=== PATIENT | female | born 1980 | race Caucasian/White ===

== ENCOUNTER 2016-10-06 17:40 | Emergency (ER) | payer OTHER ==
[2016-10-06 17:43] VITALS: TEMP 97.8; BMI 28.7
[2016-10-06] MEDS ORDERED: ACETAMINOPHEN 500 MG TABLET (FP) PO ONE (18:06)
[2016-10-06] MEDS ORDERED: ACETAMINOPHEN 325 MG TABLET (FP) ONE (18:15)
[2016-10-06 18:16] LABS: BASOPHIL 0.2 % (0-2.0); EOSINOPHIL 1.1 % (0-4.5); MCH 29.1 pg (25.7-33.7); MCHC 33.5 g/dl (32.0-36.0); MEAN CELL VOLUME 86.8 fl (80-96); MEAN PLT VOLUME 9.2 fl (7.5-11.1); NEUTROPHILS 61.9 % (42.8-82.8); PLATELET COUNT 100 K/MM3 (134-434); RDW 13.6 % (11.6-15.6); WHITE BLOOD COUNT 7.2 K/mm3 (4.0-10.0)
[2016-10-06 18:17] LABS: URINE APPEARANCE CLEAR; URINE BILIRUBIN NEGATIVE (NEGATIVE); URINE COLOR COLORLESS; URINE GLUCOSE (UA) NEGATIVE (NEGATIVE); URINE KETONE NEGATIVE (NEGATIVE); URINE LEUK ESTERASE NEGATIVE (NEGATIVE); URINE NITRITE NEGATIVE (NEGATIVE); URINE PROTEIN NEGATIVE (NEGATIVE); URINE UROBILINOGEN NEGATIVE E.U./dl (0.2-1.0)
--- NOTE | 2016-10-06 18:35 | PDOC ---
[id number] VAGINAL BLEEDING/9WKS Time Seen by Provider: 10/06/16 17:49 History Source: Patient Exam Limitations: No Limitations - History of Present Illness Travel History: No Initial Comments: 10/06/16 18:33 36-year-old female currently 9 weeks presents with vaginal bleeding since this morning worsening severity now with clots. Patient also complaining of lower abdominal cramping without dizziness, fever, or chills. Patient states is followed by Dr. Stewart but has not had an ultrasound yet for this and decided come to the ER when the bleeding worsened. Timing/Duration: reports: getting worse Quality: reports: moderate, cramping Abdominal Pain Onset Location: reports: suprapubic Pain Radiation: denies: no radiation Activities at Onset: denies: none Aggravating Factors: worse with: None Alleviating Factors: worse with: None Past History - Past Medical History Allergies/Adverse Reactions: Allergies Allergy/AdvReac Type Severity Reaction Status Date / Time No Known Allergies Allergy Verified 10/06/16 17:43 Home Medications: Ambulatory Orders NK [No Known Home Medication] 10/06/16 Other medical history: denies - Reproductive History Is Patient Now?: Yes (9 weeks ) (#): 5 Para: 4 - Psycho/Social/Smoking Cessation Hx Suicidal Ideation: No Smoking History: Never smoked Information on smoking cessation initiated: No Hx Alcohol Use: No Drug/Substance Use Hx: No Substance Use Type: None Patient Lives Alone: No Lives with/in: spouse/SO Review of Systems - Review of Systems Able to Perform ROS?: Yes Constitutional: No: Symptoms Reported HEENTM: No: Symptoms Reported Respiratory: No: Symptoms reported Cardiac (ROS): No: Symptoms Reported ABD/GI: Yes: Abdominal cramping. No: Nausea, Vomiting : Yes: Discharge (bright red blood) Musculoskeletal: No: Symptoms Reported Integumentary: No: Symptoms Reported Neurological: No: Symptoms reported Endocrine: No: Symptoms Reported Hematologic/Lymphatic: No: Symptoms Reported *Physical Exam - Vital Signs Last Vital Signs Temp Pulse Resp BP Pulse Ox 97.8 F 74 18 148/88 99 10/06/16 17:42 10/06/16 17:42 10/06/16 17:42 10/06/16 17:42 10/06/16 17:42 - Physical Exam General Appearance: Yes: Nourished, Appropriately Dressed. No: Apparent Distress HEENT: negative: Pale Conjunctivae Neck: positive: Supple Respiratory/Chest: positive: Lungs Clear, Normal Breath Sounds. negative: Respiratory Distress, Accessory Muscle Use Cardiovascular: positive: Regular Rhythm, Regular Rate. negative: Murmur Female Pelvic Exam: positive: vaginal bleeding ( heavy bright red with no clots) Gastrointestinal/Abdominal: positive: Soft, Tenderness (mid suprapubic) Musculoskeletal: negative: CVA Tenderness Extremity: positive: Normal Capillary Refill. negative: Pedal Edema Integumentary: positive: Normal Color, Warm, Moist Neurologic: positive: Motor Strength 5/5 ( ambulatory) ED Treatment Course - LABORATORY CBC & Chemistry Diagram: 10/06/16 18:00 10/06/16 18:12 - RADIOLOGY Radiology Studies Ordered: Category Date Time Status <14WKS US [US] Stat Ultrasound 10/06/16 18:06 Ordered - Medications Given in the ED: ED Medications Discontinued Medications Generic Name Dose Route Start Last Admin Trade Name Freq PRN Reason Stop Dose Admin Acetaminophen 975 mg 10/06/16 18:06 10/06/16 18:17 Tylenol - PO 10/06/16 18:07 975 mg ONCE ONE Administration Medical Decision Making - Medical Decision Making 10/06/16 18:34 Patient approximately 9 weeks based on LMP complaining of bright red blood increasing in severity since this morning. Patient has no confirmed IUP. Patient concerning for miscarriage. Patient ordered for type and screen, labs, urine and ultrasound. Patient also ordered Tylenol for discomfort . *DC/Admit/Observation/Transfer Diagnosis at time of Disposition: Vaginal bleeding before 22 weeks gestation, Ectopic - Discharge Dispostion Disposition: HOME Condition at time of disposition: Poor - Referrals Referrals: Zechariah Miranda MD [Staff Physician] - - Patient Instructions Printed Discharge Instructions: DI for Ectopic Additional Instructions: Increase fluids Pelvic rest Follow up on Saturday with Dr. Miranda at [facility] [place] Return to the ER for severe/persistent/worsening symptoms
[2016-10-06 18:37] LABS: URINE BLOOD 3+ (NEGATIVE)
[2016-10-06 18:38] LABS: URINE MUCUS RARE; URINE RBC 5 /hpf (0-3); URINE WBC <1 /hpf (3-5)
[2016-10-06 18:49] LABS: ALBUMIN 3.7 g/dl (3.4-5.0); ANION GAP 9 (8-16); BILIRUBIN,TOTAL 0.2 mg/dL (0.2-1.0); CALCIUM 9.1 mg/dL (8.5-10.1); CO2 26 mmol/L (21-32); CREATININE 0.5 mg/dL (0.55-1.02); GLUCOSE,RANDOM 88 mg/dL (74-106); SGPT/ALT 35 U/L (12-78); TOT PROT 7.4 g/dl (6.4-8.2)
--- NOTE | 2016-10-06 18:59 | PDOC ---
*Physical Exam - Vital Signs Last Vital Signs Temp Pulse Resp BP Pulse Ox 97.8 F 74 18 148/88 99 10/06/16 17:42 10/06/16 17:42 10/06/16 17:42 10/06/16 17:42 10/06/16 17:42 ED Treatment Course - LABORATORY CBC & Chemistry Diagram: 10/06/16 18:00 10/06/16 18:12 - ADDITIONAL ORDERS Additional order review: Laboratory Results 10/06/16 18:00 Urine Color Colorless Urine Appearance Clear Urine pH 5.0 Ur Specific Moyers 1.005 Urine Protein Negative Urine Glucose (UA) Negative Urine Ketones Negative Urine Blood 3+ H Urine Nitrite Negative Urine Bilirubin Negative Urine Urobilinogen Negative Ur Leukocyte Esterase Negative 10/06/16 18:00 RBC 4.36 MCV 86.8 MCHC 33.5 RDW 13.6 MPV 9.2 Neutrophils % 61.9 Lymphocytes % 28.2 Monocytes % 8.6 Eosinophils % 1.1 Basophils % 0.2 - Medications Given in the ED: ED Medications Discontinued Medications Generic Name Dose Route Start Last Admin Trade Name Davionq PRN Reason Stop Dose Admin Acetaminophen 975 mg 10/06/16 18:06 10/06/16 18:17 Tylenol - PO 10/06/16 18:07 975 mg ONCE ONE Administration Medical Decision Making - Medical Decision Making 10/06/16 18:58 Patient seen and evaluated with the nurse practitioner. I agree with the overall evaluation, assessment, and management with the following summary of visit: 36-year-old female presents with first trimester vaginal bleeding. Workup as outlined including labs, ultrasound. 10/06/16 21:38 U/S confirms 8wk ectopic without heart rate, no rupture. Discussed with OB and OR scheduled. Discussed further with Dr. Miranda, based on relatively low HCG not a candidate for OR. Wants patient to receive methotrexate and f/u on Saturday morning. Hemodynamically stable, no peritoneal findings on exam, agrees with d/ c plan. Understands strict return criteria and will f/u Saturday. *DC/Admit/Observation/Transfer Diagnosis at time of Disposition: Vaginal bleeding before 22 weeks gestation Ectopic Qualifiers: Location of ectopic : tubal Intrauterine status: unspecified Qualified Code(s): O00.1 - Tubal - Discharge Dispostion Condition at time of disposition: Poor - Referrals Referrals: Zechariah Miranda MD [Staff Physician] - - Patient Instructions Printed Discharge Instructions: DI for Ectopic Additional Instructions: Increase fluids Pelvic rest Follow up on Saturday with Dr. Miranda at [facility] [place] Return to the ER for severe/persistent/worsening symptoms
[2016-10-06 19:00] LABS: ALK PHOS 94 U/L (45-117); SGOT/AST 23 U/L (15-37)
--- NOTE | 2016-10-06 20:14 | PDOC ---
*Physical Exam - Vital Signs Last Vital Signs Temp Pulse Resp BP Pulse Ox 97.8 F 74 18 148/88 99 10/06/16 17:42 10/06/16 17:42 10/06/16 17:42 10/06/16 17:42 10/06/16 17:42 ED Treatment Course - LABORATORY CBC & Chemistry Diagram: 10/06/16 18:00 10/06/16 18:12 - ADDITIONAL ORDERS Additional order review: Laboratory Results 10/06/16 10/06/16 10/06/16 18:12 18:00 18:00 Sodium 140 Potassium 3.8 Chloride 105 Carbon Dioxide 26 Anion Gap 9 BUN 11 Creatinine 0.5 L Creat Clearance w eGFR > 60 Random Glucose 88 Calcium 9.1 Total Bilirubin 0.2 AST 23 ALT 35 Alkaline Phosphatase 94 Total Protein 7.4 Albumin 3.7 Beta HCG, Quant 1084.6 Urine Color Colorless Urine Appearance Clear Urine pH 5.0 Ur Specific Se[place]our 1.005 Urine Protein Negative Urine Glucose (UA) Negative Urine Ketones Negative Urine Blood 3+ H Urine Nitrite Negative Urine Bilirubin Negative Urine Urobilinogen Negative Ur Leukocyte Esterase Negative Urine RBC 5 Urine WBC <1 Ur Epithelial Cells Rare Urine Mucus Rare Blood Type Antibody Screen 10/06/16 18:00 Sodium Potassium Chloride Carbon Dioxide Anion Gap BUN Creatinine Creat Clearance w eGFR Random Glucose Calcium Total Bilirubin AST ALT Alkaline Phosphatase Total Protein Albumin Beta HCG, Quant Urine Color Urine Appearance Urine pH Ur Specific Seymour Urine Protein Urine Glucose (UA) Urine Ketones Urine Blood Urine Nitrite Urine Bilirubin Urine Urobilinogen Ur Leukocyte Esterase Urine RBC Urine WBC Ur Epithelial Cells Urine Mucus Blood Type O POSITIVE Antibody Screen Negative 10/06/16 18:00 RBC 4.36 MCV 86.8 MCHC 33.5 RDW 13.6 MPV 9.2 Neutrophils % 61.9 Lymphocytes % 28.2 Monocytes % 8.6 Eosinophils % 1.1 Basophils % 0.2 - RADIOLOGY Radiograph Interpretation: 10/06/16 21:09 2110hrs: Spoke to [facility] Dr. Perez Left sided Ectopic (Ovary)with pole Fluid in Cul de sac - Medications Given in the ED: ED Medications Discontinued Medications Generic Name Dose Route Start Last Admin Trade Name Freq PRN Reason Stop Dose Admin Acetaminophen 975 mg 10/06/16 18:06 10/06/16 18:17 Tylenol - PO 10/06/16 18:07 975 mg ONCE ONE Administration Progress Note - Progress Note Progress Note: 2012hrs: Dr. Olsen called/Pt's Block Feeder [phone] Spoke to US tech: left ectopic measuring at 8 weeks 3 days Neg motion Heart rate 2032hrs: Spoke to Dr. Marina/OB covering for Dr. Smyth . As per Dr. Marina, he is ONLY covering his private patients. Pt is a [facility] patient. 2035hrs: Called Dr. Miranda: OB oil pump station operator chief 2039hrs; Spoke to Dr. Miranda; WIll take her to OR now/ Dr. Miranda will call RN supervision 2132hrs: Spoke to Dr. Miranda/OB oil pump station operator chief As opposed to sending the patient to the operating room, Dr. Miranda wishes to treat with methotrexate 70 mg IM and follow-up at [facility] OB clinic on Saturday morning 10/08/2016. Patient's beta hCG is at 1084. *DC/Admit/Observation/Transfer Diagnosis at time of Disposition: Vaginal bleeding before 22 weeks gestation Ectopic Qualifiers: Location of ectopic : tubal Intrauterine status: unspecified Qualified Code(s): O00.1 - Tubal - Discharge Dispostion Disposition: HOME Condition at time of disposition: Poor Admit: No - Referrals Referrals: Zechariah Miranda MD [Staff Physician] - - Patient Instructions Printed Discharge Instructions: DI for Ectopic Additional Instructions: Increase fluids Pelvic rest Follow up on Saturday with Dr. Miranda at [facility] Return to the ER for severe/persistent/worsening symptoms
[2016-10-06 21:07] VITALS: BP 127/85; PULSE 89
[2016-10-06] MEDS ORDERED: METHOTREXATE SODIUM/PF 25 MG/ML VIAL IM ONE (21:29)
== END 2016-10-06 22:46 | disposition home or self-care (01) ==
LOC: JER 17:40
DX: O00.80 Other ectopic pregnancy without intrauterine pregnancy (principal); O20.8 Other hemorrhage in early pregnancy; Z3A.09 9 weeks gestation of pregnancy
CPT/HCPCS: 36415; 76801-TC; 80053; 81003; 81015; 84702; 85025; 86850; 86900; 86901; 96372; 99285-25; J9260

== ENCOUNTER 2018-01-14 18:05 | Inpatient (IN) | payer OTHER ==
[2018-01-14] MEDS ORDERED: BUTORPHANOL TARTRATE 1 MG/ML VIAL IVPB ONE (19:15)
[2018-01-14] MEDS ORDERED: PROMETHAZINE HCL 25 MG/1 ML VIAL IVPUSH ONE (19:15)
--- NOTE | 2018-01-14 19:21 | HP ---
Past Medical History - Primary Care Physician PCP:: Keyla Perry - Admission Chief Complaint: 37 yrs , previous c/s x1 onset LP 11, AM, requests for .39.3 weeks by dates , 40.2 weeks by sono. pt was seen in the clinic approx at 1.00pm cx was 3 cm dilated , early labor History of Present Illness: Pnc at [address] [place] [address] wt gain 30 lbs panel 07/09/17 O Pos, Rpr nr, Hbsag neg, Rubella pos , Quantiferon neg , rpr nr, Hiv neg , PNGT- 121 normal 12/19/17 Gbs neg, gc/ct neg, iv neg seen by MFM for growth sono . & genetic counselling Materna t-21, Afp neg . NT screen was not done early sono showed posterior marginal previa, later on previa was no longer detected last sono 1 month ago natasha 14.2 cm,efw 6'2" History Source: Patient, Medical Record Limitations to Obtaining History: No Limitations - Past Medical History SPRING MAKER: No: Migraine, Seizure Cardiovascular: No: HTN, Murmur Pulmonary: No: Asthma Hepatobiliary: No: Cholelithiasis, Hepatitis B Renal/: No: UTI ...: 5 ...Para: 4 ...Term: 4 ...LMP: 04/14/17 ... Weeks Gestation by Dates: 39.3 ...EDC by Dates: 01/18/18 ...EDC by Sono: 01/12/18 (07/06/17 by sono 14.2 weeks, , edc assigned. 40.2 weeks by sono ) Additional OB History: G1 04/05/2001 6'11' [facility]. G2 01/12/2005 7'13" [facility]. G3 09/21/2009 7'14" [facility]. g4 primary LFTC/section for Breech 8'6" [facility] Heme/Onc: Yes: Anemia Infectious Disease: No: AIDS, HIV, STD's, Tuberculosis Psych: No: Addictions, Anxiety, Depression, Psychosis - Past Surgical History Past Surgical History: Yes: (08/23/11lftc/s) Hx Myomectomy: No Hx Transabdominal Cerclage: No - Smoking History Smoking history: Never smoked - Alcohol/Substance Use Hx Alcohol Use: No History of Substance Use: reports: None Home Medications - Allergies Allergies/Adverse Reactions: Allergies Allergy/AdvReac Type Severity Reaction Status Date / Time No Known Allergies Allergy Verified 10/06/16 17:43 - Home Medications Home Medications: Ambulatory Orders NK [No Known Home Medication] 10/06/16 Physical Exam - Maternity Constitutional: Yes: Well Nourished, No Distress Eyes: Yes: WNL HENT: Yes: WNL, Normocephalic Neck: Yes: WNL Cardiovascular: Yes: WNL, Regular Rate and Rhythm Lungs: Clear to auscultation Breast(s): Yes: WNL - Abdominal Exam/OB Fundal Height: 40 Number of Fetuses: Single Presentation: Vertex Contractions: Yes Regularity: Regular Intensity: Moderate Monitor Mode: External Heart Rate (range): 140 Heart Rate Location: [facility] Category: I Accelerations: Uniform Decelerations: None - Vaginal Exam/OB Vaginal Bleediing: Bloody Show Speculum Exam: No Dilatation (cm): 4-5 Effacement (%): 100 Amniotic Membrane Status: Intact Presentation: Vertex/Position Station: -3 - Physical Exam Musculoskeletal: Yes: WNL Extremities: Yes: WNL. No: Calf Tenderness Edema: Yes Edema: LLE: 1+, RLE: 1+ Integumentary: Yes: Incision (pfannensteil scar) Deep Tendon Reflex Grade: Normal +2 ...Motor Strength: WNL Psychiatric: Yes: WNL, Alert, Oriented - Labs Lab Results: Laboratory Tests 01/14/18 01/14/18 01/14/18 19:00 19:00 19:00 WBC 10.1 H D Hgb 11.8 Hct 36.5 Plt Count 304 D PT with INR 10.60 INR 0.94 PTT (Actin FS) 27.4 Sodium 139 Potassium 4.0 Chloride 106 Carbon Dioxide 20 L BUN 12 Creatinine 0.5 L Random Glucose 64 L Calcium 8.5 Hemorrhage Risk Assessment - Risk Factors Medium Risk Factors: Yes: Prior , uterine surgery,or multiple laparotomies Risk Score: 1 Risk Level: Medium Risk Problem List - Problems (1) Post term over 40 weeks Code(s): O48.0 - POST-TERM (2) Previous section Code(s): Z98.891 - HISTORY OF UTERINE SCAR FROM PREVIOUS SURGERY (3) Labor established Code(s): YSB0966 - Assessment/Plan 37 yrs ( AMA) , 40 .2 weeks by sono previous c/s in labor early labor pt requests for , r/b/a informed not ltd to rupture ut, hemorrhage, infection, distress etc pt understands , wants to try TOLAC Plan TOLAC
[2018-01-14] MEDS: ELECTROLYTE-148 SOLN 1,000 ML IV SCH (19:30)
[2018-01-14 19:33] LABS: BASO % 0.1 % (0-2.0); EOS % 0.3 % (0-4.5); HEMATOCRIT 36.5 % (32.4-45.2); HEMOGLOBIN 11.8 GM/dL (10.7-15.3); LYMPH % 15.3 % (8-40); MCHC 32.3 g/dl (32.0-36.0); MEAN CELL VOLUME 80.6 fl (80-96); MEAN PLT VOLUME 9.3 fl (7.5-11.1); MONO % 5.7 % (3.8-10.2); NEUT % 78.6 % (42.8-82.8); PLATELET COUNT 304 K/MM3 (134-434); RBC 4.53 M/mm3 (3.60-5.2); WHITE BLOOD COUNT 10.1 K/mm3 (4.0-10.0)
[2018-01-14 19:46] LABS: INR 0.94 (0.82-1.09); PROTHROMBIN TIME (PATIENT) 10.6 SEC (9.7-13.0)
[2018-01-14 19:49] LABS: ACTIVATED PTT 27.4 SECONDS (26.9-34.4)
[2018-01-14 19:51] VITALS: BMI 39.1
[2018-01-14 19:54] LABS: ANION GAP 13 (8-16); BLOOD UREA NITROGEN 12 mg/dL (7-18); CALCIUM 8.5 mg/dL (8.5-10.1); CHLORIDE 106 mmol/L (98-107); CO2 20 mmol/L (21-32); CREATININE 0.5 mg/dL (0.55-1.02); GLUCOSE,RANDOM 64 mg/dL (74-106); SODIUM 139 mmol/L (136-145)
--- NOTE | 2018-01-14 22:59 | PN ---
Progress Note, Labor Vaginal Exam #1 Labor Exam Date: 01/14/18 Labor Exam Time: 22:40 Heart Rate (range): 145 Dilatation: 6 Effacement (%): 100 Amniotic Membrane Status: Intact Presentation: Vertex/Position Station: -3 (-3/-2) Remarks: irregular uc fhr cat-1 Selected Entries 01/14/18 22:00 Temperature 98.4 F Pulse Rate 86 Blood Pressure 122/80 Vaginal Exam #2 Labor Exam Date: 01/15/18 Labor Exam Time: 02:15 Heart Rate (range): 150 Dilatation: 7 Effacement (%): 100 Amniotic Membrane Status: Ruptured Station: -1 Remarks: fhr cat-1 uc 2-5min stadol 1 mg + phenrgan 25 mg iv stat given at 12.55AM Selected Entries 01/15/18 01:00 Temperature 98.2 F Pulse Rate 80 Blood Pressure 145/71 Vaginal Exam #3 Labor Exam Date: 01/15/18 Labor Exam Time: 04:15 Heart Rate (range): 135 Dilatation: 10 Effacement (%): 100 Amniotic Membrane Status: Ruptured Presentation: Vertex/Position Station: +2 Remarks: fhr cat-2 pt pushing uc q2-4 min Selected Entries 01/15/18 03:00 Temperature 99.0 F Pulse Rate 87 Blood Pressure 139/77
[2018-01-15] MEDS: ELECTROLYTE-148 SOLN 1,000 ML IV SCH (00:30)
[2018-01-15] MEDS ORDERED: PROMETHAZINE HCL 25 MG/1 ML VIAL ONE (00:50)
[2018-01-15] MEDS ORDERED: BUTORPHANOL TARTRATE 1 MG/ML VIAL ONE (00:50)
[2018-01-15] MEDS ORDERED: OXYTOCIN 20 UNITS in 0.9% NS 20 UNIT/1,000 ML INFUS.BAG IV ONE ×2 (03:19→08:21)
[2018-01-15] MEDS: OXYTOCIN 20 UNITS in 0.9% NS 20 UNIT/1,000 ML INFUS.BAG IV SCH ×2 (05:00→08:30)
[2018-01-15 05:15] LABS: ARTERIAL BLOOD GAS BASE EXCESS -6.4 meq/l (-2-2); ARTERIAL BLOOD GAS PCO2 50.3 mmHg (35-45); ARTERIAL BLOOD GAS pH 7.25 (7.35-7.45)
--- NOTE | 2018-01-15 05:16 | PN ---
Delivery - Delivery Vaginal Delivery: Shoulder/Difficult (Vx was delievered In GARY position , McRobert's manouvre was performed, exagerated lithotomy position was given suprapubic pressure by nurse was given , immediate oral & nasal suction was done , baby was handed over to nurse reqd suction only , 8/8), Spontaneous Type of Anesthesia: None Episiotomy/Laceration: None EBL (cc): 300 Delivery, Single - Stages of Labor Date 1st Stage Initiatied: 01/14/18 Time 1st Stage Initiated: 11:30 Date 2nd Stage Initiated: 01/15/18 Time 2nd Stage Initiated: 04:15 Date of Delivery: 01/15/18 Time of Delivery: 04:48 Date Placenta Delivered: 01/15/18 Time Placenta Delivered: 04:58 Placenta: Yes: Spontaneous, Uterine Exploration (ut was intact & empty .) - Condition of Manager Of Hospital/Special Diet Cook Present: No Infant Gender: Male Weight: 8 lb 5 oz Position: Right, OA Total Hours ROM (Hrs/Mins): 2hr, 43 min - 1 Minute Total Score: 8 5 Minutes Total Score: 8 - [place] Feeding Plan Initial Plan: Elected not to breastfeed exclusively throughout hospitalization Remarks - Remarks Remarks: 27 yrs , , previous c/section preceeded by 3 , admitted in labor , requested pnc at [address] [place] [address] GBS neg Intrapartum stadol 1 mg + Phenrgan 25 mg iv was given Intrapartum course was uneventful
[2018-01-15 05:17] LABS: VENOUS PC02 41.6 mmHg (38-52); VENOUS PH 7.29 (7.32-7.42); VENOUS PO2 32.1 mmHg (28-48)
[2018-01-15 05:18] LABS: ARTERIAL BLOOD GAS PO2 22.2 mmHg (80-100)
[2018-01-15] MEDS ORDERED: IBUPROFEN 600 MG TABLET (FP) PO PRN (05:24)
[2018-01-15] MEDS ORDERED: BISACODYL 10 MG SUPP.RECT RC PRN (05:24)
[2018-01-15] MEDS ORDERED: BENZOCAINE 28 GM HEMORRHOIDAL OINTMENT TP PRN (05:24)
[2018-01-15] MEDS ORDERED: BENZOCAINE 20% 57 GM BOTTLE TP PRN (05:24)
[2018-01-15] MEDS ORDERED: ACETAMINOPHEN 325 MG TABLET (FP) PO PRN (05:24)
[2018-01-15] MEDS ORDERED: WITCH HAZEL 50% (TUCKS) 40 PAD/JAR PAD TP PRN (05:24)
[2018-01-15] MEDS ORDERED: METHYLERGONOVINE MALEATE 0.2 MG/1 ML AMP IM PRN (05:24)
[2018-01-15] MEDS ORDERED: oxyCODONE HCL 5 MG TABLET PO PRN (05:24)
[2018-01-15] MEDS ORDERED: IBUPROFEN 600 MG TABLET (FP) PO ONE (07:30)
[2018-01-15] MEDS: PRENATAL VITAMINS W/ FOLIC ACID TABLET (FP) PO SCH (09:54)
[2018-01-15] MEDS: FERROUS SO4 325 MG TABLET (FP) PO SCH ×2 (09:54→17:25)
[2018-01-16 08:10] LABS: BASO % 0.3 % (0-2.0); EOS % 0.9 % (0-4.5); HEMATOCRIT 25.2 % (32.4-45.2); HEMOGLOBIN 8.4 GM/dL (10.7-15.3); LYMPH % 27.4 % (8-40); MCHC 33.5 g/dl (32.0-36.0); MEAN CELL VOLUME 80.6 fl (80-96); MONO % 5.6 % (3.8-10.2); NEUT % 65.8 % (42.8-82.8); PLATELET COUNT 218 K/MM3 (134-434); RBC 3.13 M/mm3 (3.60-5.2); RDW 16.2 % (11.6-15.6)
[2018-01-16] MEDS: FERROUS SO4 325 MG TABLET (FP) PO SCH ×2 (08:39→17:33)
[2018-01-16] MEDS: PRENATAL VITAMINS W/ FOLIC ACID TABLET (FP) PO SCH (09:43)
[2018-01-16] MEDS ORDERED: DIPHTH,PERTUSS(ACELL),TET 0.5 ML DISP.SYRIN IM ONE (10:00)
--- NOTE | 2018-01-16 13:07 | PN ---
Post Progress Note - Subjective Subjective: no complains Post Day: 1 Type of Delivery: Vital Signs: Vital Signs Temperature 97.9 F 01/16/18 02:00 Pulse Rate 83 01/16/18 02:00 Respiratory Rate 20 01/16/18 02:00 Blood Pressure 103/63 01/16/18 02:00 O2 Sat by Pulse Oximetry (%) 98 01/15/18 06:15 Breast Exam: Yes: Soft. No: Engorged Uterus: Yes: Fundus Firm, Fundus below umbilicus Lochia: Yes: Rubra Lochia, amount: Moderate Extremities: Yes: Calves non-tender Perineum: Yes: Intact Activity: Ambulating - Labs Labs: CBC WBC 10.0 K/mm3 (4.0-10.0) 01/16/18 07:47 RBC 3.13 M/mm3 (3.60-5.2) L D 01/16/18 07:47 Hgb 8.4 GM/dL (10.7-15.3) L D 01/16/18 07:47 Hct 25.2 % (32.4-45.2) L D 01/16/18 07:47 MCV 80.6 fl (80-96) 01/16/18 07:47 MCH 27.0 pg (25.7-33.7) 01/16/18 07:47 MCHC 33.5 g/dl (32.0-36.0) 01/16/18 07:47 RDW 16.2 % (11.6-15.6) H 01/16/18 07:47 Plt Count 218 K/MM3 (134-434) D 01/16/18 07:47 MPV 9.0 fl (7.5-11.1) 01/16/18 07:47 Neutrophils % 65.8 % (42.8-82.8) 01/16/18 07:47 Lymphocytes % 27.4 % (8-40) D 01/16/18 07:47 Monocytes % 5.6 % (3.8-10.2) 01/16/18 07:47 Eosinophils % 0.9 % (0-4.5) D 01/16/18 07:47 Basophils % 0.3 % (0-2.0) 01/16/18 07:47 Problem List - Problems (1) Post term over 40 weeks Code(s): O48.0 - POST-TERM (2) Previous section Code(s): Z98.891 - HISTORY OF UTERINE SCAR FROM PREVIOUS SURGERY (3) Labor established Code(s): NHY1594 - (4) , delivered, current hospitalization Code(s): O34.219 - MATERNAL CARE FOR UNSP TYPE SCAR FROM PREVIOUS DEL (5) Anemia Code(s): D64.9 - ANEMIA, UNSPECIFIED Assessment/Plan pp /sp , anemia stable counselled for anemia discharge tomorrow.
[2018-01-16 17:19] VITALS: BP 112/63; PULSE 74; TEMP 98
[2018-01-16] MEDS ORDERED: SENNOSIDES/DOCUSATE COMBO (SENNA PLUS) TABLET (UD) PO PRN (22:00)
--- NOTE | 2018-01-21 18:00 | DS ---
Physical Exam-MOBILE EQUIPMENT OPERATOR Vital Signs: Vital Signs Temperature 98 F 01/16/18 09:00 Pulse Rate 74 01/16/18 09:00 Respiratory Rate 20 01/16/18 09:00 Blood Pressure 112/63 01/16/18 09:00 O2 Sat by Pulse Oximetry (%) 98 01/15/18 06:15 Constitutional: Yes: Well Nourished Eyes: Yes: WNL HENT: Yes: WNL, Normocephalic Neck: Yes: WNL Cardiovascular: Yes: WNL, Regular Rate and Rhythm Respiratory: Yes: WNL, CTA Bilaterally Gastrointestinal: Yes: WNL, Other Renal/: Yes: WNL ....Post : Yes: Uterus firm, Uterus non-tender, Moderate lochia rubra ( perineum intact) Breast(s): Yes: WNL (Breast & bottle feeding) Musculoskeletal: Yes: WNL Extremities: Yes: WNL Edema: Yes Edema: LLE: 1+, RLE: 1+ Integumentary: Yes: Incision (old pfannensteil scar) Neurological: Yes: WNL, Alert, Oriented ...Motor Strength: WNL Psychiatric: Yes: WNL Labs: CBC, BMP 01/16/18 07:47 01/14/18 19:00 Delivery - Delivery Vaginal Delivery: Shoulder/Difficult (Vx was delievered In GARY position , McRobert's manouvre was performed, exagerated lithotomy position was given suprapubic pressure by nurse was given , immediate oral & nasal suction was done , baby was handed over to nurse reqd suction only , 8/8), Spontaneous Type of Anesthesia: None Episiotomy/Laceration: None EBL (cc): 300 Delivery, Single - Stages of Labor Date 1st Stage Initiatied: 01/14/18 Time 1st Stage Initiated: 11:30 Date 2nd Stage Initiated: 01/15/18 Time 2nd Stage Initiated: 04:15 Date of Delivery: 01/15/18 Time of Delivery: 04:48 Time Placenta Delivered: 04:58 Placenta: Yes: Spontaneous, Uterine Exploration (ut was intact & empty .) - Condition of Infant Data Conversion Operator/Prototype Engineer Manager Present: No Gender: Male Weight: 8 lb 5 oz Position: Right, OA Total Hours ROM (Hrs/Mins): 2hr, 43 min - 1 Minute Total Score: 8 5 Minutes Total Score: 8 - Feeding Plan Initial Plan: Elected not to breastfeed exclusively throughout hospitalization Remarks - Remarks Remarks: 27 yrs , , previous c/section preceeded by 3 , admitted in labor , requested pnc at [address] [place] [address] GBS neg Intrapartum stadol 1 mg + Phenrgan 25 mg iv was given Intrapartum course was uneventful . pp course was uneventful pt requested to be discharged in the evening of pp day #1due to personal problems & baby also was discharged . anemia was counselled discharge 01/16/18 Discharge Summary Reason For Visit: LABOR Condition: Stable - Instructions Diet, Activity, Other Instructions: Post Instructions DIET: Continue good diet high in protein, calcium, and iron rich foods. Drink at least eight (8) glasses of water daily in addition to other fluids. ___ Regular diet MEDICATIONS: Continue vitamins and iron as previously directed. Motrin and Tylenol may be taken for minor discomfort. ACTIVITY: Mild to moderate exercise may be started in two (2) weeks. Take frequent rest periods. Resume normal activity after six (6) week check up. WOUND CARE OF OPERATIVE SITE: Continue use of perineal bottle until vaginal discharge stops. Keep area clean. Shower daily. Keep abdominal wound dry. Report any drainage or redness to physician. Tub baths, tampons and douches are not permitted for 6 weeks. _ct Breast feeding & or Bottle feeding BREAST CARE: (For those that are not ): If engorgement occurs: Wear tight fitting bra. Take Tylenol or Motrin for pain. Apply cold packs (ice in bags to each breast ) FAMILY PLANNING: There are many control alternatives to pursue and they should be discussed at your first office visit. You may resume sexual activity after your six (6) week check up. (Remember, breast feeding is not a contraceptive) NEXT PHYSICIAN APPOINTMENT: Be certain to call for a six (6) week appointment, unless otherwise directed. Call Clinic or got to Emergency Dept if you have any of the following: Heavy vaginal bleeding Painful urination Leg pain Unusual odor noted to vaginal bleeding High fever Red streaking noted on breast Referrals: Keyla Perry MD [Staff Physician] - Disposition: HOME - Home Medications Comprehensive Discharge Medication List: Ambulatory Orders Acetaminophen [Tylenol .Regular Strength -] 650 mg PO Q3H PRN tablet 01/15/18 Ferrous Sulfate [Feosol] 325 mg PO BIDWM #90 tab 01/15/18 Ibuprofen [Motrin -] 200 mg PO Q4H PRN tablet 01/15/18 Vitamins (Sjr) - 1 tab PO DAILY #30 tablet 01/15/18
== END 2018-01-16 19:06 | disposition home or self-care (01) | DRG 560 ==
LOC: JLDR 18:05 → J3W 01-15 14:51
PROVIDERS: ADMIT Obstetrics & Gynecology; ATTEND Obstetrics & Gynecology
PROC: 10E0XZZ Delivery of Products of Conception, External Approach (ICD-10-PCS; principal; 2018-01-15)
DX: O48.0 Post-term pregnancy (principal); O34.219 Maternal care for unspecified type scar from previous cesarean delivery; O99.02 Anemia complicating childbirth; Z3A.40 40 weeks gestation of pregnancy; Z37.0 Single live birth
CPT/HCPCS: 36415; 36600; 59409; 80048; 82803; 85025; 85610; 85730; 86593; 86850; 86900; 86901; 90715

== ENCOUNTER 2018-10-25 19:49 | Emergency (ER) | payer OTHER ==
[2018-10-25 19:59] VITALS: BP 107/70; PULSE 80; TEMP 98.2; BMI 35.7
--- NOTE | 2018-10-25 21:57 | PDOC ---
History of Present Illness - General Chief Complaint: Vaginal Bleeding Stated Complaint: 8 WKS /VAGINAL BLEED Time Seen by Provider: 10/25/18 21:56 - History of Present Illness Initial Comments: 38yo F A1 currently 9 weeks (LMP 08/24/2018) with PMH of ectopic presenting with vaginal spotting. Patient states she noticed the spotting yesterday while wiping. She also endorses some cramping sensation as well as back pain. Patient has been to a clinic at [facility] but has not yet had an ultrasound. 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 She has not felt contractions. HIstory of but no other abdominal surgeries. Previous pregnancies were uncomplicated. Last bowel movment was this morning and was a normal formed brown stool. No dysuria, hematuria, or urgency. Denies fever, chills, chest pain, shortness of breath, nausea, or vomiting. Past History - Past Medical History Allergies/Adverse Reactions: Allergies Allergy/AdvReac Type Severity Reaction Status Date / Time No Known Allergies Allergy Verified 10/25/18 19:59 Home Medications: Ambulatory Orders Acetaminophen [Tylenol .Regular Strength -] 650 mg PO Q3H PRN tablet 01/15/18 Ferrous Sulfate [Feosol] 325 mg PO BIDWM #90 tab 01/15/18 Ibuprofen [Motrin -] 200 mg PO Q4H PRN tablet 01/15/18 Vitamins (Sjr) - 1 tab PO DAILY #30 tablet 01/15/18 Asthma: No Cancer: No Cardiac Disorders: No COPD: No Diabetes: No HTN: No Seizures: No Thyroid Disease: No - Reproductive History (#): 5 Para: 4 - Suicide/Smoking/Psychosocial Hx Smoking History: Never smoked Have you smoked in the past 12 months: No Hx Alcohol Use: No Drug/Substance Use Hx: No Substance Use Type: None Hx Substance Use Treatment: No Review of Systems - Review of Systems Comments:: Constitutional: no fever, no chills HEENT: no throat pain, no dysphagia Cardiovascular: no chest pain, no palpitations Respiratory: no cough, no shortness of breath Gastrointestinal: no nausea, no vomiting Genitourinary: no dysuria, no frequency Musculoskeletal: no myalgia, +back pain Skin: no rash, no itching Neurologic: no headache, no dizziness *Physical Exam - Vital Signs Last Vital Signs Temp Pulse Resp BP Pulse Ox 98.2 F 80 18 107/70 98 10/25/18 19:55 10/25/18 19:55 10/25/18 19:55 10/25/18 19:55 10/25/18 19:55 - Physical Exam Comments: General: Awake, alert, and fully oriented, in no acute distress Head: No signs of trauma Eyes: EOMI, sclera anicteric ENT: Moist mucus membranes Neck: Normal ROM, supple Lungs: Lungs clear, Normal breath sounds Cardio: Regular rhythm, S1 and S2 present Abdomen: Slightly tender to palpation in suprapubic area. Soft, nondistended. No guarding, no rebound, no masses Extremities: Normal range of motion, Distal pulses present SKIN: Warm, Dry, normal turgor Neurologic: Cranial nerves II through XII grossly intact. Normal speech Pelvic: External genitalia without erythema, exudate or discharge. Vaginal vault is with blood. Cervix is of normal color without lesion. The os is closed. No cervical motion tenderness is seen. The adnexa are without masses or tenderness. Moderate Sedation - Procedure Monitoring Vital Signs: Procedure Monitoring Vital Signs Temperature 98.2 F 10/25/18 19:55 Pulse Rate 80 10/25/18 19:55 Respiratory Rate 18 10/25/18 19:55 Blood Pressure 107/70 10/25/18 19:55 O2 Sat by Pulse Oximetry (%) 98 10/25/18 19:55 ED Treatment Course - LABORATORY CBC & Chemistry Diagram: 10/25/18 22:53 10/25/18 22:53 Medical Decision Making - Medical Decision Making 38yo F A1 currently 9 weeks (LMP 08/24/2018) with PMH of ectopic presenting with vaginal spotting. DDX including but not limited to threatened , ectopic , subchorionic hemorrhage Tylenol 650mg for pain. CBC, CMP, Type and Screen, B-hCG, UA, Urine Culture, TVUS 10/25/18 23:26 N anemia or leukocytosis UA negative Patient signed out to night team 10/26/18 00:01 *DC/Admit/Observation/Transfer Diagnosis at time of Disposition: First trimester bleeding, Threatened - Discharge Dispostion Disposition: HOME Condition at time of disposition: Good - Referrals Referrals: [facility] [place] [Provider Group] Jake Stewart MD [Staff Physician] - - Patient Instructions Printed Discharge Instructions: DI for Threatened Additional Instructions: You were seen in the Emergency Department for vaginal spotting. The ultrasound today confirmed that this is an intrauterine . Your blood work was also normal. You can take [id number] tylenol for pain. Follow the instructions on the medication bottle. Follow-up with your sheet metal duct installer in 2 days. You need to call and set up an appointment. Return to the Emergency Department if you experience: -heavy bleeding (more than two pads per hour for two hours) -severe pain -lightheadedness -shortness of breath -high fever -any other concerning symptoms Usted fue atendido en el Departamento de Emergencias por manchado vaginal. La ecografa de hoy confirm que se trata de un embarazo intrauterino. Singh anlisis de gisela tambin fue normal. Puede melvin tylenol de venta allen para el dolor. Siga las instrucciones en el envase del medicamento. Dacia un seguimiento con singh gineclogo / obstetra en 2 vizcaino. Necesita llamar y concertar mariano valerio. Regrese al Departamento de Emergencias si experimenta: -sangrado abundante (ms de dos compresas por hora nash dos horas) -dolor hector aturdimiento -cortitud de aliento -fiebre rachel - Cualquier otro sntoma relativo. Print Language: GABONESE - Post Discharge Activity
--- NOTE | 2018-10-25 22:24 | PDOC ---
Attending Attestation - HPI HPI: This patient is a 38 year old female A1, current 9 weeks (LMP 08/24), with PMHx of ectopic 2 years ago, who presents with vaginal spotting. She also endorses suprapubic cramping and back pain. She states she has not seen her OB and her has not been officially confirmed by US (only by at- home ). Denies any chest pain, shortness of breath, nausea, vomiting or other symptoms. Denies any tissues or blood clots. Has not taken anything for the pain. ObGyn: Dr. Stewart <Savanna Partida - Last Filed: 10/25/18 23:47> - Resident Resident Name: Nitza Jimenez - ED Attending Attestation I have performed the following: I have examined & evaluated the patient, The case was reviewed & discussed with the resident, I agree w/resident's findings & plan, Exceptions are as noted - Physicial Exam PE: GENERAL: Awake, alert, and fully oriented, in no acute distress. Well- appearing. HEAD: No signs of trauma EYES: PERRLA, EOMI, sclera anicteric, conjunctiva clear ENT: Auricles normal inspection, hearing grossly normal, nares patent, oropharynx clear without exudates. Moist mucosa NECK: Normal ROM, supple, no lymphadenopathy, JVD, or masses LUNGS: Breath sounds equal, clear to auscultation bilaterally. No wheezes, and no crackles HEART: Regular rate and rhythm, normal S1 and S2, no murmurs, rubs or gallops ABDOMEN: Soft, nontender, normoactive bowel sounds. No guarding, no rebound. No masses EXTREMITIES: Normal range of motion, no edema. No clubbing or cyanosis. No cords, erythema, or tenderness NEUROLOGICAL: Cranial nerves II through XII grossly intact. Normal speech, normal gait. Motor and sensation intact SKIN: Warm, Dry, normal turgor, no rashes or lesions noted. - Medical Decision Making Pt presents at approx 8 WGA with vaginal spotting. She has not yet had any workup as an outpatient. Threatened miscarriage, will obtain labs, ultrasound. 10/26/18 02:17 Sono results d/w patient. The ultrasound is consistent with an earlier , approximately 6 weeks 5 days. No FHM visualized. Either it is a very early or her dates are correct and it has stopped developing. Counseled her to f/u with Dr. Stewart in 48 hrs for repeat B-HCG and possibly ultrasound to check for FHM. I provided her with a copy of her lab and ultrasound results so she could give it to her physician. <Nitza Gutiérrez - Last Filed: 10/26/18 02:18> Attestations - Attestations 10/25/18 23:46 Documentation prepared by Savanna Partida, acting as medical clerk for Nitza Gutiérrez MD. <Savanna Partida - Last Filed: 10/25/18 23:47>
[2018-10-25] MEDS ORDERED: ACETAMINOPHEN 325 MG TABLET (FP) PO ONE (22:31)
[2018-10-25 22:59] LABS: BASO % 0.3 % (0-2.0); EOS % 1.2 % (0-4.5); HEMATOCRIT 39.7 % (32.4-45.2); HEMOGLOBIN 13.8 GM/dL (10.7-15.3); LYMPH % 31.7 % (8-40); MCH 30.1 pg (25.7-33.7); MCHC 34.8 g/dl (32.0-36.0); MEAN CELL VOLUME 86.5 fl (80-96); MEAN PLT VOLUME 7.6 fl (7.5-11.1); MONO % 7.6 % (3.8-10.2); NEUT % 59.2 % (42.8-82.8); PLATELET COUNT 343 K/MM3 (134-434); RBC 4.59 M/mm3 (3.60-5.2); RDW 13.7 % (11.6-15.6); WHITE BLOOD COUNT 6.9 K/mm3 (4.0-10.0)
[2018-10-25 23:14] LABS: URINE APPEARANCE CLOUDY; URINE BILIRUBIN NEGATIVE (<2.0 mg/dL); URINE COLOR YELLOW; URINE GLUCOSE (UA) NEGATIVE (NEGATIVE); URINE KETONE NEGATIVE (NEGATIVE); URINE LEUK ESTERASE NEGATIVE (NEGATIVE); URINE NITRITE NEGATIVE (NEGATIVE); URINE PROTEIN NEGATIVE (NEGATIVE); URINE UROBILINOGEN NEGATIVE mg/dL (0.2-1.0)
[2018-10-25] MEDS ORDERED: ACETAMINOPHEN 325 MG TABLET (FP) ONE (23:16)
[2018-10-25 23:28] LABS: ALBUMIN 3.9 g/dl (3.4-5.0); ALK PHOS 87 U/L (45-117); ANION GAP 5 MMOL/L (8-16); BILIRUBIN,TOTAL 0.4 mg/dL (0.2-1); BLOOD UREA NITROGEN 13 mg/dL (7-18); CHLORIDE 105 mmol/L (98-107); CO2 27 mmol/L (21-32); CREATININE 0.6 mg/dL (0.55-1.3); GLUCOSE,RANDOM 88 mg/dL (74-106); POTASSIUM 3.8 mmol/L (3.5-5.1); SGOT/AST 20 U/L (15-37); SGPT/ALT 30 U/L (13-61); SODIUM 137 mmol/L (136-145); TOT PROT 8.2 g/dl (6.4-8.2)
--- NOTE | 2018-10-26 00:34 | PDOC ---
*Physical Exam - Vital Signs Last Vital Signs Temp Pulse Resp BP Pulse Ox 98.2 F 80 18 107/70 98 10/25/18 19:55 10/25/18 19:55 10/25/18 19:55 10/25/18 19:55 10/25/18 19:55 <Nitza Gutiérrez - Last Filed: 10/26/18 01:55> - Vital Signs Last Vital Signs Temp Pulse Resp BP Pulse Ox 98.2 F 80 18 107/70 98 10/25/18 19:55 10/25/18 19:55 10/25/18 19:55 10/25/18 19:55 10/25/18 19:55 <Ivone De La Torre - Last Filed: 10/26/18 02:06> ED Treatment Course - LABORATORY CBC & Chemistry Diagram: 10/25/18 22:53 10/25/18 22:53 - ADDITIONAL ORDERS Additional order review: Laboratory Results 10/25/18 10/25/18 10/25/18 23:06 22:53 22:53 Sodium Potassium Chloride Carbon Dioxide Anion Gap BUN Creatinine Creat Clearance w eGFR Random Glucose Calcium Total Bilirubin AST ALT Alkaline Phosphatase Total Protein Albumin Beta HCG, Quant Cancelled Urine Color Yellow Urine Appearance Cloudy Urine pH 6.0 Ur Specific [place] 1.019 Urine Protein Negative Urine Glucose (UA) Negative Urine Ketones Negative Urine Blood Negative Urine Nitrite Negative Urine Bilirubin Negative Urine Urobilinogen Negative Ur Leukocyte Esterase Negative Blood Type O POSITIVE Antibody Screen Negative 10/25/18 22:53 Sodium 137 Potassium 3.8 Chloride 105 Carbon Dioxide 27 Anion Gap 5 L BUN 13 Creatinine 0.6 Creat Clearance w eGFR > 60 Random Glucose 88 Calcium 9.0 Total Bilirubin 0.4 AST 20 ALT 30 Alkaline Phosphatase 87 Total Protein 8.2 Albumin 3.9 Beta HCG, Quant 8035.7 Urine Color Urine Appearance Urine pH Ur Specific [place] Urine Protein Urine Glucose (UA) Urine Ketones Urine Blood Urine Nitrite Urine Bilirubin Urine Urobilinogen Ur Leukocyte Esterase Blood Type Antibody Screen 10/25/18 22:53 RBC 4.59 MCV 86.5 MCHC 34.8 RDW 13.7 D MPV 7.6 D Neutrophils % 59.2 Lymphocytes % 31.7 Monocytes % 7.6 Eosinophils % 1.2 Basophils % 0.3 - Medications Given in the ED: ED Medications Discontinued Medications Generic Name Dose Route Start Last Admin Trade Name Freq PRN Reason Stop Dose Admin Acetaminophen 650 mg 10/25/18 22:31 10/25/18 23:21 Tylenol - PO 10/25/18 22:32 650 mg ONCE ONE Administration <Nitza Gutiérrez - Last Filed: 10/26/18 01:55> - LABORATORY CBC & Chemistry Diagram: 10/25/18 22:53 10/25/18 22:53 - ADDITIONAL ORDERS Additional order review: Laboratory Results 10/25/18 10/25/18 10/25/18 23:06 22:53 22:53 Sodium 137 Potassium 3.8 Chloride 105 Carbon Dioxide 27 Anion Gap 5 L BUN 13 Creatinine 0.6 Creat Clearance w eGFR > 60 Random Glucose 88 Calcium 9.0 Total Bilirubin 0.4 AST 20 ALT 30 Alkaline Phosphatase 87 Total Protein 8.2 Albumin 3.9 Urine Color Yellow Urine Appearance Cloudy Urine pH 6.0 Ur Specific [place] 1.019 Urine Protein Negative Urine Glucose (UA) Negative Urine Ketones Negative Urine Blood Negative Urine Nitrite Negative Urine Bilirubin Negative Urine Urobilinogen Negative Ur Leukocyte Esterase Negative Blood Type O POSITIVE Antibody Screen Negative 10/25/18 22:53 RBC 4.59 MCV 86.5 MCHC 34.8 RDW 13.7 D MPV 7.6 D Neutrophils % 59.2 Lymphocytes % 31.7 Monocytes % 7.6 Eosinophils % 1.2 Basophils % 0.3 - Medications Given in the ED: ED Medications Discontinued Medications Generic Name Dose Route Start Last Admin Trade Name Goyo PRN Reason Stop Dose Admin Acetaminophen 650 mg 10/25/18 22:31 10/25/18 23:21 Tylenol - PO 10/25/18 22:32 650 mg ONCE ONE Administration <Ivone De La Torre - Last Filed: 10/26/18 02:06> Medical Decision Making - Medical Decision Making Pt was signed out to me by resident Dr. Jimenez, who explained the presentation, ED course, any pending results, and needed interventions. Pending results include transvaginal US to determine IUP. Pt is currently stable and is in US. 10/26/18 00:33 Beta-hc OB US: 6 weeks, 0 days, no visible yolk sac or heartbeat. No torsion. Pt can be discharged with OB follow-up, with beta-hcg trending in 48 hours. Strict return precautions provided with pt understanding. 10/26/18 02:03 <Ivone De La Torre - Last Filed: 10/26/18 02:06> *DC/Admit/Observation/Transfer - Discharge Dispostion Decision to Admit order: No <Nitza Gutiérrez - Last Filed: 10/26/18 01:55> - Discharge Dispostion Decision to Admit order: No <Ivone De La Torre - Last Filed: 10/26/18 02:06> Diagnosis at time of Disposition: First trimester bleeding, Threatened - Discharge Dispostion Disposition: HOME Condition at time of disposition: Good - Referrals Referrals: [facility] [place] [Provider Group] Jake Stewart MD [Staff Physician] - - Patient Instructions Printed Discharge Instructions: DI for Threatened Additional Instructions: You were seen in the Emergency Department for vaginal spotting. The ultrasound today confirmed that this is an intrauterine . Your blood work was also normal. You can take [id number] tylenol for pain. Follow the instructions on the medication bottle. Follow-up with your housefellow in 2 days. You need to call and set up an appointment. Return to the Emergency Department if you experience: -heavy bleeding (more than two pads per hour for two hours) -severe pain -lightheadedness -shortness of breath -high fever -any other concerning symptoms Usted fue atendido en el Departamento de Emergencias por manchado vaginal. La ecografa de hoy confirm que se trata de un embarazo intrauterino. Paul anlisis de gisela tambin fue normal. Puede melvin tylenol de venta allen para el dolor. Siga las instrucciones en el envase del medicamento. Dacia un seguimiento con paul gineclogo / obstetra en 2 vizcaino. Necesita llamar y concertar mariano valerio. Regrese al Departamento de Emergencias si experimenta: -sangrado abundante (ms de dos compresas por hora nash dos horas) -dolor hector aturdimiento -cortitud de aliento -fiebre rachel - Cualquier otro sntoma relativo. Print Language: TAMAZIGHT - Post Discharge Activity
== END 2018-10-26 02:10 | disposition home or self-care (01) ==
LOC: JER 19:49
DX: O26.891 Other specified pregnancy related conditions, first trimester (principal); O20.0 Threatened abortion; Z3A.01 Less than 8 weeks gestation of pregnancy
CPT/HCPCS: 36415; 76817-TC; 80053; 81003; 84702; 85025; 86850; 86900; 86901; 87086; 99282-25

== ENCOUNTER 2023-01-16 16:44 | Emergency (ER) | payer SELFPAY ==
[2023-01-16 17:04] VITALS: BP 135/77; PULSE 102; RESP 20; TEMP 97.9; BMI 32.3
[2023-01-16] MEDS ORDERED: ALBUTEROL SO4 2.5/IPRATROPIUM 0.5 INH SOL 3 ML VIAL.NEB. NEB ONE ×2 (17:30→17:45)
[2023-01-16] MEDS ORDERED: predniSONE 20 MG TABLET (UD) PO ONE (17:31)
[2023-01-16] MEDS ORDERED: predniSONE 20 MG TABLET (UD) ONE (17:45)
== END 2023-01-16 19:10 | disposition home or self-care (01) ==
LOC: JER 16:44
PROC: 3E0F7GC Introduction of Other Therapeutic Substance into Respiratory Tract, Via Natural or Artificial Opening (ICD-10-PCS; principal; 2023-01-16)
DX: R05.9 Cough, unspecified (principal); R06.02 Shortness of breath; R07.9 Chest pain, unspecified; R09.89 Other specified symptoms and signs involving the circulatory and respiratory systems; Z20.822 Contact with and (suspected) exposure to COVID-19
CPT/HCPCS: 0241U-QW; 71046-TC-FY; 93005; 93010; 99284-25

== ENCOUNTER 2024-04-14 12:55 | Emergency (ER) | payer SELFPAY ==
[2024-04-14 13:53] VITALS: BP 107/73; PULSE 83; RESP 20; TEMP 98.2; BMI 30.2
[2024-04-14] MEDS ORDERED: IBUPROFEN 400 MG TABLET (FP) PO ONE (14:19)
[2024-04-14] MEDS: IBUPROFEN 400 MG TABLET (FP) PO ONE (14:22)
== END 2024-04-14 15:43 | disposition home or self-care (01) ==
LOC: JERFT 12:55
DX: S99.911A Unspecified injury of right ankle, initial encounter (principal); X50.1XXA Overexertion from prolonged static or awkward postures, initial encounter; Y93.01 Activity, walking, marching and hiking; Y92.009 Unspecified place in unspecified non-institutional (private) residence as the place of occurrence of the external cause
CPT/HCPCS: 73610-TC-RT-FY; 73630-TC-RT-FY; 99283-25